=== PATIENT | female | born 1990 | race Asian ===

== ENCOUNTER 2019-05-19 18:23 | Observation (INO) ==
[2019-05-19] MEDS ORDERED: SODIUM CHLORIDE 0.9% 1000ML 1,000 ML IV ONE (18:51)
[2019-05-19] MEDS ORDERED: MoRPHine SULFATE 2 MG/ML CARP IV STA ×2 (19:04→19:44)
[2019-05-19 19:45] LABS: Basophils # (auto) 0.02 K/uL (0-0.2); Basophils % (auto) 0.2 %; Eosinophils # (auto) 0.02 K/uL (0-0.5); Eosinophils % (auto) 0.2 %; Hemoglobin 12.7 g/dL (12.0-16.0); Immature Granulocytes # (auto) 0.03 K/uL (0.00-0.02); Immature Granulocytes % (auto) 0.3 %; Lymphocytes % (auto) 9.4 %; Mean Corpuscular Hemoglobin 27.9 pg (25-34); Mean Corpuscular Hgb Conc 33.4 g/dL (32-36); Mean Corpuscular Volume 83.5 fL (80-100); Mean Platelet Volume 12.3 fL (7.4-10.4); Monocytes # (auto) 0.37 K/uL (0.11-0.59); Monocytes % (auto) 3.1 %; Neutrophils # (auto) 10.21 K/uL (1.4-6.5); Neutrophils % (auto) 86.8 %; Platelet Count 203 K/uL (130-400); RDW Coefficient of Variation 13.1 % (11.5-14.5); RDW Standard Deviation 39.5 fL (36.4-46.3); Red Blood Count 4.55 M/uL (4.2-5.4); White Blood Count 11.75 K/uL (4.8-10.8)
[2019-05-19 19:50] LABS: Alanine Aminotransferase 10 U/L (12-78); Albumin Level 3.7 gm/dl (3.4-5.0); Aspartate Aminotransferase 7 U/L (15-37); Blood Urea Nitrogen 12 mg/dl (7-18); Calcium 8.7 mg/dl (8.5-10.1); Carbon Dioxide 23 mmol/L (21-32); Chloride 110 mmol/L (98-107); Est GFR (African American) 126.9; Est GFR (Non-African American) 109.5; Glucose 109 mg/dl (70-99); Potassium 3.5 mmol/L (3.5-5.1); Sodium 140 mmol/L (136-145)
[2019-05-19 19:53] LABS: Albumin Globulin Ratio 1.1 (0.9-2); Alkaline Phosphatase 46 U/L (45-117); Bilirubin,Total 0.8 mg/dl (0.2-1); Globulin 3.5 gm/dl (2.5-4.0); Total Protein 7.2 gm/dl (6.4-8.2)
--- NOTE | 2019-05-19 20:33 | Surgery Progress Note ---
Date of Service May 19, 2019 Assessment & Plan (1) External hemorrhoid, thrombosed: Patient was placed in a prone position. Quick clot applied to the hemorrhoid and firm pressure held for several minutes. The patient was then placed into a supine position with a sandbag providing pressure to the area. I reevaluated the patient about an hour and a half following this treatment and the bleeding had completely stopped. The patient was comfortable. H&H was stable. Instructions were given to the patient for home care. I feel she is stable for discharge and is to follow-up with me within 1 week. Patient was offered to stay overnight for a night but she opted to go home. I think this is reasonable. Subjective Called back to the emergency room. Patient is status post I&D of a thrombosed hemorrhoid earlier today. She represented to the OR shortly after discharge complaining of severe bleeding from the incision site. Physical Exam Physical Exam: Patient with bleeding from the incised hemorrhoid. No new findings. Gauze soaked with blood with moderate active bleeding. Results & Data Vital Signs (Past 12 Hours) Vital Signs Temp Pulse Pulse Resp BP BP Pulse Ox 05/19/19 19:32 65 20 108/75 97 05/19/19 18:32 36.3 C L 86 16 115/77 98 PG Care Time/CCT Total # of Minutes Spent Total Time Spent with Patient: Total time spent is greater than 50% in coordination of care (as documented) at patient's floor/unit and/or counseling patient:
[2019-05-19] MEDS ORDERED: MoRPHine SULFATE 4 MG/ML 1 ML CARP\\VIAL IV STA (21:14)
--- NOTE | 2019-05-19 21:40 | History & Physical Report ---
Date of Service May 19, 2019 Assessment & Plan (1) External hemorrhoid, thrombosed: will admit to observation for pain control. hopeful d/c tomorrow. discussed hemorrhoidectomy cannot be performed until inflammation resolves. History of Present Illness Primary Care Provider: NO PCP pt seen in ER today for thrombosed hemorrhoid. we incised/drained it earlier today without incident. pt returned to ER with bleeding. bleeding controlled with pressure/hemostatic agent but pt wants to stay for pain control. Allergies Allergy/AdvReac Type Severity Reaction Status Date / Time SEAFOOD Allergy Mild RASH Uncoded 05/19/19 20:44 Home Medications Home Medications Medication Instructions Recorded Confirmed Type aspirin 1,000 mg PO Q6H PRN 05/19/19 05/19/19 History dibucaine [Nupercainal] 1 applic [place] QID PRN 05/19/19 05/19/19 History hydrocodone-acetaminophen [[place]] 1 tab PO Q6H PRN #12 tab 05/19/19 05/19/19 Rx Past Med/Surg History Medical History (Updated 05/19/19 @ 20:31 by Disha Everett) Amniotic fluid leaking (Acute) External hemorrhoid, thrombosed (Acute) No significant past medical history Surgical History (Updated 05/19/19 @ 12:11 by Camille Sharma) No significant past surgical history Social History (Updated 05/19/19 @ 12:11 by Camille Sharma) Preferred Language: Martiniquais Communication Ability: Effective Visual Impairment: No Limitations Hearing Ability: Normal Current Living Situation: Family Feels Safe at Home: Yes Smoking Status: Never smoker Hx Alcohol Use: No Hx Substance Use: No Review of Systems All systems reviewed & are unremarkable except as noted in HPI & below Physical Exam Constitutional: WD/WN, vitals as above no acute distress and not ill appearing Eyes: PERRL, conjunctivae normal, anicteric sclerae EOM intact bilaterally ENMT: external ear and nose normal, oropharynx normal Ears: no hearing impairment Neck: trachea midline, no thyromegaly Respiratory: normal respiratory effort; no respiratory distress and does not use accessory muscles Cardiovascular: Rate/Rhythm: regular rate and regular rhythm Gastrointestinal (Abdomen): normal bowel sounds, soft, nontender, no hepatosplenomegaly bleeding stopped.. hemorrhoid approx 1/4 size of earlier today. much less tender. Skin: no rashes, warm and dry Psychiatric: Orientation: alert, oriented x 3 and cooperative Results & Data Vital Signs (Past 12 Hours) Vital Signs Temp Pulse Pulse Resp BP BP Pulse Ox 05/19/19 21:14 120 H 22 135/96 98 05/19/19 19:32 65 20 108/75 97 05/19/19 18:32 36.3 C L 86 16 115/77 98
[2019-05-19] MEDS ORDERED: OXYCODONE HCL IR 5 MG TAB (IMMEDIATE RELEASE) PO PRN ×2 (22:30)
[2019-05-19] MEDS ORDERED: KETOROLAC 30 MG/ML VIAL IV PRN (22:30)
[2019-05-19] MEDS ORDERED: SODIUM CHLORIDE 0.9% 1000ML 1,000 ML IV SCH (22:30)
[2019-05-19] MEDS ORDERED: HYDROmorphone INJ 1 MG/ML SYRINGE IV PRN (22:30)
[2019-05-19] MEDS ORDERED: ACETAMINOPHEN 325 MG TAB PO PRN (22:30)
[2019-05-19] MEDS ORDERED: ONDANSETRON INJ 2 MG/ML 2 ML VIAL IV PRN (22:30)
[2019-05-19] MEDS ORDERED: HYDROmorphone INJ 0.5 MG/0.5 ML SYR IV PRN (22:35)
[2019-05-19] MEDS: IBUPROFEN 600 MG TAB PO SCH (23:44)
[2019-05-19 23:51] LABS: Hematocrit (blood only) 31.3 % (37-47); Hemoglobin 10.5 g/dL (12.0-16.0); Mean Corpuscular Hemoglobin 27.9 pg (25-34); Mean Corpuscular Hgb Conc 33.5 g/dL (32-36); Mean Platelet Volume 12.4 fL (7.4-10.4); Platelet Count 172 K/uL (130-400); RDW Coefficient of Variation 13.1 % (11.5-14.5); Red Blood Count 3.77 M/uL (4.2-5.4); White Blood Count 9.07 K/uL (4.8-10.8)
[2019-05-20] MEDS: IBUPROFEN 600 MG TAB PO SCH ×3 (05:56→19:25)
[2019-05-20 08:08] LABS: Hemoglobin 10.7 g/dL (12.0-16.0); Mean Corpuscular Hemoglobin 27.8 pg (25-34); Mean Corpuscular Hgb Conc 33.4 g/dL (32-36); Mean Corpuscular Volume 83.1 fL (80-100); Mean Platelet Volume 11.9 fL (7.4-10.4); Platelet Count 167 K/uL (130-400); RDW Coefficient of Variation 13.1 % (11.5-14.5); RDW Standard Deviation 39.9 fL (36.4-46.3); Red Blood Count 3.85 M/uL (4.2-5.4); White Blood Count 7.66 K/uL (4.8-10.8)
--- NOTE | 2019-05-20 08:09 | Surgery Progress Note ---
Date of Service May 20, 2019 Assessment & Plan (1) External hemorrhoid, thrombosed: Day#1 s/p I&D of external hemorrhoid Patient re-presented with bleeding and pain after discharge from the ED yesterday. Bleeding was then managed in the ED and pt was admitted for pain control. She initially told me she felt better, but then expressed ongoing concerns for pain and frustration that she had to return yesterday CBC this morning is stable at 10.7 from 10.5; only scant drainage on pad from overnight She has not taking narcotic since around midnight and has been utilizing ibuprofen for pain control I educated patient that after the I&D we want patient to try conservative management of her hemorrhoid prior to follow up in the surgery clinic, such as stool softeners, fiber, and 3-4x daily sitz baths Anticipate discharge to home later today. Will leave instructions for patient to follow up in surgery clinic within 1-2 wks if she stays in the area, but she can also follow up with a surgeon in [place] if she prefers since she is going back home As above. Continues to have significant pain. No further bleeding. On exam her hemorrhoid is dramatically smaller from yesterday but is still thrombosed and exquisitely tender. Nares down to a relatively narrow base and I believe I could potentially perform a hemorrhoidectomy which should give her more definitive relief. She is not capable of going home at this point. We will make her n.p.o. and perform a rectal exam under anesthesia with anticipation of hemorrhoidectomy. Discussed the options and risks. Patient agreeable. Subjective Patient initially told me she had an uneventful night. She said she had no episodes of bleeding since coming to the floor. As conversation continued she endorsed ongoing frustration with why she still has her hemorrhoid and that she is still in pain. Physical Exam Physical Exam: awake/alert Gastrointestinal (Abdomen): + external hemorrhoid with scant bloody drainage on pad Results & Data Vital Signs (Past 12 Hours) Vital Signs Temp Pulse Pulse Resp BP Pulse Ox 05/20/19 07:48 36.9 C 77 16 95/59 L 98 05/19/19 23:20 36.9 C 65 16 109/71 95 05/19/19 22:30 37 C 100 H 18 122/75 97 05/19/19 21:14 120 H 22 135/96 98 PG Care Time/CCT Total # of Minutes Spent Total Time Spent with Patient: Total time spent is greater than 50% in coordination of care (as documented) at patient's floor/unit and/or counseling patient:
[2019-05-20] MEDS ORDERED: SODIUM CHLORIDE 0.9% 1000ML 1,000 ML IV SCH (11:00)
[2019-05-20] MEDS ORDERED: fentaNYL citrate 100 MCG/2 ML VIAL ONE (14:55)
[2019-05-20] MEDS ORDERED: DEXAMETHASONE SOD INJ 4 MG/ML VIAL ONE (14:55)
[2019-05-20] MEDS ORDERED: ONDANSETRON INJ 2 MG/ML 2 ML VIAL ONE (14:55)
[2019-05-20] MEDS ORDERED: PROPOFOL IV EMULSION 10 MG/ML 20 ML VIAL IV ONE (14:55)
[2019-05-20] MEDS ORDERED: LIDOCAINE HCL 2% 2 ML VIAL/AMP(20MG/ML) INFIL ONE (14:55)
[2019-05-20] MEDS ORDERED: MIDAZOLAM HCL 1 MG/ML 2ML VIAL ONE (14:55)
--- NOTE | 2019-05-20 15:20 | History & Physical Bridge Note ---
Date of Service May 20, 2019 History & Physical Bridge Note I have examined the patient, reviewed the History & Physical and in the interval since the performance of the History & Physical I have noted the following changes of clinical significance: no changes noted
--- NOTE | 2019-05-20 15:26 | Anesthesiology Consultation ---
Date of Service May 20, 2019 Assessment & Plan Chart Review Chart Review: Acceptable Risk for Surgery Consults Requested none History Surgery Operation Date: 05/20/19 12:35 Proposed Procedures p Hemorroidectomy - Fernie Sidhu DO Height/Weight Height: 5 ft 3 in Weight: 47.3 kg Allergies Allergy/AdvReac Type Severity Reaction Status Date / Time SEAFOOD Allergy Mild RASH Uncoded 05/19/19 20:44 Medications Home Medications Medication Instructions Recorded Confirmed Last Taken aspirin 1,000 mg PO Q6H PRN 05/19/19 05/19/19 Unknown dibucaine [Nupercainal] 1 applic [place] QID PRN 05/19/19 05/19/19 Unknown hydrocodone-acetaminophen [[place]] 1 tab PO Q6H PRN #12 tab 05/19/19 05/19/19 Unknown Active Medications Generic Name Dose Route Start Last Admin Trade Name Freq PRN Reason Stop Dose Admin Hydromorphone HCl 0.5 mg 05/19/19 22:35 05/19/19 22:39 Dilaudid IV 06/02/19 22:34 0.5 mg Q3H PRN Administration MODERATE PAIN Sodium Chloride 1,000 mls @ 100 mls/hr 05/20/19 11:00 05/20/19 10:51 Nss 1000ml IV 06/19/19 10:59 100 mls/hr .Q10H CLARY Administration Ibuprofen 600 mg 05/20/19 00:00 05/20/19 12:55 Motrin PO 06/19/19 00:00 600 mg Q6H CLARY Administration Oxycodone HCl 10 mg 05/19/19 22:30 05/20/19 09:45 Roxicodone Immediate Rel PO 06/02/19 22:29 10 mg Q4H PRN Administration SEVERE Pain (Scale 7,8,9,10) NPO Date Last Intake of Fluids: 05/19/19 Time Last Intake of Fluids: 23:59 Date Last Intake of Solids: 05/19/19 Time Last Intake of Solids: 23:59 Past Medical History Medical History Amniotic fluid leaking (Acute) External hemorrhoid, thrombosed (Acute) No significant past medical history Past Surgical History Surgical History No significant past surgical history Social History Smoking Status: Never smoker Do You Dip or Chew Tobacco: No Hx Alcohol Use: No Hx Substance Use: No substance use type: does not use Physical Exam Vital Signs Last Vital Signs Temp 37 C 05/20/19 15:15 Pulse 74 05/20/19 15:15 Resp 16 05/20/19 15:15 BP 106/68 05/20/19 15:15 Pulse Ox 100 05/20/19 15:15 Testing Laboratory Results 05/20/19 07:49 05/19/19 19:09 Blood Type O Positive 05/19/19 19:09 Antibody Screen NEGATIVE 05/19/19 19:09
[2019-05-20] MEDS ORDERED: GELATIN SPONGE SZ 100 ONE (15:28)
[2019-05-20] MEDS ORDERED: BUPIVACAINE/EPINEPHRINE 0.5% MPF 1:200,000 10 ML VIAL ONE (15:28)
[2019-05-20] MEDS ORDERED: ePHEDrine sulfate 50 MG/ML AMP IV PRN (15:31)
[2019-05-20] MEDS ORDERED: METOCLOPRAMIDE HCL INJ 5 MG/ML 2 ML VIAL IV PRN (15:31)
[2019-05-20] MEDS ORDERED: ATROPINE SULFATE 0.1 MG/ML 10ML SYR IV PRN (15:31)
[2019-05-20] MEDS ORDERED: PROMETHAZINE HCL 12.5 MG in SODIUM CHLORIDE 0.9% 50 ML IV PRN (15:31)
[2019-05-20] MEDS ORDERED: HYDROmorphone INJ 2 MG/ML SYR/VIAL IV PRN (15:31)
[2019-05-20] MEDS ORDERED: DEXAMETHASONE SOD INJ 4 MG/ML VIAL IV PRN (15:31)
[2019-05-20] MEDS ORDERED: ONDANSETRON INJ 2 MG/ML 2 ML VIAL IV PRN (15:31)
[2019-05-20] MEDS ORDERED: fentaNYL citrate 100 MCG/2 ML VIAL IV PRN (15:31)
[2019-05-20] MEDS ORDERED: BUPIVACAINE LIPOSOME 1.3% 266 MG/20 ML VIAL ONE (16:04)
[2019-05-20] MEDS ORDERED: LIDOCAINE 2% JELLY 5 ML TUBE ONE (16:22)
[2019-05-20] MEDS ORDERED: CEFAZOLIN 1,000 MG/7.5 ML IV PUSH IV ONE (16:31)
--- NOTE | 2019-05-20 16:46 | Operative Report ---
[facility] Post Operative Report Pre & Post Diagnosis Operation Date: 05/20/19 12:35 Pre-Op Diagnosis: THROMBOSED HEMORRHOID Post-Op Diagnosis: THROMBOSED HEMORRHOID I identified the patient and participated in the time-out.: Yes Procedure Operation Date: 05/20/19 12:35 Actual Procedures p Hemorroidectomy - Fernie Sidhu DO Surgeon Fernie Sidhu, [employer] kerry Hood Estimated Blood Loss 10 Findings Consistent with Post-Op Diagnosis Specimens hemorrhoid tissue Description of Procedure After informed consent was obtained the patient was taken to the operating room and placed in supine position. After successful placement of the laryngeal mask airway the patient was placed in a high lithotomy position in yellowfin stirrups. The entire rectum and perineum were sterilely prepped and draped in usual fashion. I began by injecting Marcaine with epinephrine around the area of the inflamed hemorrhoid. Once this was done I performed a rectal exam under anesthesia with a rigid anoscope. Only one area of hemorrhoid tissue was inflamed at the 5 oclock location. This was much improved from yesterday and the thrombosis was completely extracted previously. I incised the anoderm using a fresh 15 blade scalpel. I then used a LigaSure device to come down underneath the hemorrhoidal tissue down in divide and cauterize its pedicle. The tissue was sent off to pathology. No other hemorrhoidal tissue was seen. Once the procedure was completed I injected Exparel 20 cc around the entire operative field. There was adequate hemostasis. We irrigated the rectal vault. We placed a piece of Gelfoam with lidocaine jelly into the rectal lumen. The patient was then placed in a supine position extubated and transferred recovery in stable condition. My physician senior care assistant was present for the entire case. He will prep the patient. He helped with retraction during my dissection as well as dressing placement. I attest to the content of the Intraoperative Record and any orders documented therein. Any exceptions are noted below.
[2019-05-20] MEDS ORDERED: CEFAZOLIN 250 MG/ML 1 GM VIAL ONE (16:47)
--- NOTE | 2019-05-20 17:11 | Anesthesiology Progress Note ---
Date of Service May 20, 2019 Anesthesia Post Procedure Vital Signs Vital Signs: Temp Pulse Pulse Pulse Resp BP BP 05/20/19 17:00 81 16 106/62 05/20/19 16:50 79 16 105/67 05/20/19 16:40 36.9 C 101 H 16 110/74 05/20/19 15:15 37 C 74 16 106/68 05/20/19 07:48 36.9 C 77 16 95/59 L 05/19/19 23:20 36.9 C 65 16 109/71 05/19/19 22:30 37 C 100 H 18 122/75 05/19/19 21:14 120 H 22 135/96 05/19/19 19:32 65 20 108/75 05/19/19 18:32 36.3 C L 86 16 115/77 Pulse Ox 05/20/19 17:00 100 05/20/19 16:50 100 05/20/19 16:40 100 05/20/19 15:15 100 05/20/19 07:48 98 05/19/19 23:20 95 05/19/19 22:30 97 05/19/19 21:14 98 05/19/19 19:32 97 05/19/19 18:32 98 Pain Intensity Rectal: Pain Intensity: 5 Transfer of Care Handoff Completed per policy Notes Mental Status: alert / awake / arousable and participated in evaluation Patient Amnestic to Procedure: Yes Nausea / Vomiting: adequately controlled Pain: adequately controlled Airway Patency, RR, SpO2: stable & adequate BP & HR: stable & adequate Hydration State: stable & adequate Anesthetic Complications: no major complications apparent
--- NOTE | 2019-05-21 10:37 | Emergency Department Note ---
Entered by Disha Everett acting as a scribe for History of Present Illness General Chief complaint: Bleeding Stated complaint: HARD TIME BREATHING Time Seen by Provider: 05/19/19 18:44 History of Present Illness Provider complaint: rectal bleeding Onset (ago): minute(s) 10 Pain Consistency: + other (episode) Maximum Pain Intensity: 3 Quality: + other (rectal bleeding) Relieved By: + none Associated symptoms: + weakness and + other (hemorrhoid drained today by Dr. Sidhu and was just discharged, afriad she will , dizzy, bled through several pads) The patient is a 29 year old female who presents to the ED with complaints of an episode of rectal bleeding that started 10 minutes ago. The patient states the she just had a hemorrhoid drained today by Dr. Sidhu. The patient states that she was discharged 10 minutes ago but the bleeding is so profuse that she is afraid she will if she goes home. The patient states she is very dizzy and weak. The patient states that she has bled through several pads and nothing is stopping the bleeding. Home Medications Home Medications Medication Instructions Recorded Confirmed Type Nupercainal 1 applic NC QID PRN 05/19/19 05/19/19 History aspirin 1,000 mg PO Q6H PRN 05/19/19 05/19/19 History hydrocodone-acetaminophen [[place]] 1 tab PO Q6H PRN #12 tab 05/19/19 05/19/19 Rx Allergies Allergy/AdvReac Type Severity Reaction Status Date / Time SEAFOOD Allergy Mild RASH Uncoded 05/19/19 20:44 Past Med/Surg History Medical History Amniotic fluid leaking (Acute) External hemorrhoid, thrombosed (Acute) No significant past medical history Surgical History No significant past surgical history Social History (Updated 05/19/19 @ 12:11 by Camille Sharma) Preferred Language: B[place]ian Communication Ability: Effective Visual Impairment: No Limitations Hearing Ability: Normal 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 and A total of 10 systems reviewed and were otherwise negative Physical Exam Vital Signs Vital Signs - 24 hr 05/19/19 18:32 05/19/19 19:12 05/19/19 19:31 Temperature 36.3 C L Temperature Source Oral Pulse Rate 86 Pulse Rate [Apical] Pulse Rhythm Regular Pulse Strength Normal Respiratory Rate 16 Respiratory Effort / Characteristics Non-Labored Respiratory Depth Normal Respiratory Pattern Regular Blood Pressure 115/77 Blood Pressure [Right Arm] Blood Pressure Mean 89 Blood Pressure Mean [Right Arm] Blood Pressure Position Sitting Pulse Oximetry 98 Oxygen Delivery Method Room Air Room Air Room Air Oxygen Flow Rate 100 Sepsis Recent Fever Within 48 Hours No Sepsis Action Taken by Nursing No Action Required 05/19/19 19:32 05/19/19 21:14 Temperature Temperature Source Pulse Rate Pulse Rate [Apical] 65 120 H Pulse Rhythm Pulse Strength Respiratory Rate 20 22 Respiratory Effort / Characteristics Non-Labored Respiratory Depth Normal Respiratory Pattern Blood Pressure Blood Pressure [Right Arm] 108/75 135/96 Blood Pressure Mean Blood Pressure Mean [Right Arm] 86 109 Blood Pressure Position Pulse Oximetry 97 98 Oxygen Delivery Method Room Air Room Air Oxygen Flow Rate Sepsis Recent Fever Within 48 Hours Sepsis Action Taken by Nursing General: Uncomfortable appearing young female HEENT: Normal cephalic atraumatic. Pupils are equal round and reactive to light. Extraocular movements are intact. Oropharynx is pink with moist mucous me mbranes. No swelling of the mouth lips or tongue. Neck: Supple with a midline trachea. No meningeal signs or stiffness, no JVD or bruits. No Stridor. Chest: Clear to auscultation bilaterally. No wheezes or rhonchi. No increased work of breathing. Heart: regular rate and rhythm. Abdomen: Soft nontender, nondistended without rebound guarding or rigidity. Extremities: No cyanosis clubbing or edema. No calf tenderness or asymmetry Rectal: Large amount of bright red blood with clots seen in dressing and underwear. Bleeding is coming from hemorrhoid. Spine/Back. Non tender to palpation. No CVA tenderness Skin: Good turgor without rashes. Neurologic exam: Cranial nerves two through 12 are intact. Motor and sensation are intact and symmetrical throughout. Course Course 1848: Past medical records reviewed. The patient was evaluated in room A10. A complete history and physical exam was performed. 1851: I discussed the patient's case with Dr. Mariano Salamanca. He states that he will come down and see the patient. 1857: Dr. Sidhu came down to see the patient. They put a quick clot on her and are holding pressure. I will reevaluate the patient shortly. 1955: A pressure dressing is applied and there is no significant bleeding present. The patient is requesting more pain medicine. 2020: I reevaluated the patient and she is no longer bleeding. The patient states that she is still in pain. 2118: I discussed the patient's case with Dr. Mariano Salamanca. He will evaluate the patient for further pain management. Consultations Consultation #1: I discussed the patient's case with Dr. Mariano Salamanca. He states that he will come down and see the patient. Time: 18:52 Consultation #2: I discussed the patient's case with Dr. Mariano Salamanca. He will evaluate the patient for further pain management. Time: 21:19 Administered Medications Discontinued Medications Bupivacaine HCl/Epinephrine Bitart (Sensorcaine/Epinephrine 0.5% Mpf 1:200,000) Confirm Administered Dose 20 ml .ROUTE .STK-MED ONE Stop: 05/20/19 15:29 Last Admin: 05/20/19 16:24 Dose: 20 ml Documented by: [id number] Bupivacaine Liposome (Exparel) Confirm Administered Dose 266 mg .ROUTE .STK-MED ONE Stop: 05/20/19 16:05 Last Admin: 05/20/19 16:25 Dose: 266 mg Documented by: [id number] Cefazolin Sodium (Ancef 1000mg) 1,000 mg IV NOW ONE; Protocol Stop: 05/20/19 16:32 Last Admin: 05/20/19 19:23 Dose: Not Given Documented by: [id number] Gelatin (Surgifoam Sponge 100 (Large)) Confirm Administered Dose 1 ea .ROUTE .STK-MED ONE Stop: 05/20/19 15:29 Last Admin: 05/20/19 16:25 Dose: 1 ea Documented by: [id number] Hydromorphone HCl (Dilaudid) 0.5 mg IV Q3H PRN PRN Reason: MODERATE PAIN Stop: 06/02/19 22:34 Last Admin: 05/19/19 22:39 Dose: 0.5 mg Documented by: [id number] Sodium Chloride (Nss 1000ml) 1,000 mls @ 999 mls/hr IV .Q1H1M ONE Stop: 05/19/19 19:51 Last Infusion: 05/19/19 20:04 Dose: 0 mls/hr Documented by: [id number] Admin: 05/19/19 19:03 Dose: 999 mls/hr Documented by: [id number] Sodium Chloride (Nss 1000ml) 1,000 mls @ 100 mls/hr IV .Q10H CLARY Stop: 06/18/19 22:29 Last Infusion: 05/20/19 08:28 Dose: 0 mls/hr Documented by: [id number] Admin: 05/19/19 22:39 Dose: 100 mls/hr Documented by: [id number] Sodium Chloride (Nss 1000ml) 1,000 mls @ 100 mls/hr IV .Q10H CLARY Stop: 06/19/19 10:59 Last Admin: 05/20/19 10:51 Dose: 100 mls/hr Documented by: [id number] Ibuprofen (Motrin) 600 mg PO Q6H CLARY Stop: 06/19/19 00:00 Last Admin: 05/20/19 19:25 Dose: 600 mg Documented by: [id number] Admin: 05/20/19 12:55 Dose: 600 mg Documented by: [id number] Admin: 05/20/19 05:56 Dose: 600 mg Documented by: [id number] Admin: 05/19/19 23:44 Dose: 600 mg Documented by: [id number] Lidocaine HCl (Xylocaine 2% Jelly) Confirm Administered Dose 5 ml .ROUTE .STK- MED ONE Stop: 05/20/19 16:23 Last Admin: 05/20/19 16:25 Dose: 5 ml Documented by: [id number] Morphine Sulfate (Morphine Sulfate) 2 mg IV NOW STA Stop: 05/19/19 19:05 Last Admin: 05/19/19 19:07 Dose: 2 mg Documented by: [id number] Morphine Sulfate (Morphine Sulfate) 2 mg IV NOW STA Stop: 05/19/19 19:45 Last Admin: 05/19/19 19:47 Dose: 2 mg Documented by: [id number] Morphine Sulfate (Morphine Sulfate) 4 mg IV NOW STA Stop: 05/19/19 21:15 Last Admin: 05/19/19 21:19 Dose: 4 mg Documented by: [id number] Oxycodone HCl (Roxicodone Immediate Rel) 10 mg PO Q4H PRN PRN Reason: SEVERE Pain (Scale 7,8,9,10) Stop: 06/02/19 22:29 Last Admin: 05/20/19 09:45 Dose: 10 mg Documented by: [id number] Medical Decision Making Differential Diagnosis Differentials include anemia, GI bleed, infection, post-surgical complication. Medical Records Attestation: I reviewed the patient's medical records. Home Medications Current Medication List: was personally reviewed by me Laboratory Data Attestation: I reviewed the patient's lab results. Result diagrams: 05/20/19 07:49 05/19/19 19:09 Lab Results 05/19/19 05/19/19 05/19/19 Range/Units 19:09 19:09 19:09 WBC 11.75 H (4.8-10.8) K/uL RBC 4.55 (4.2-5.4) M/uL Hgb 12.7 (12.0-16.0) g/dL Hct 38.0 (37-47) % MCV 83.5 (80-100) fL MCH 27.9 (25-34) pg MCHC 33.4 (32-36) g/dL RDW Std Deviation 39.5 (36.4-46.3) fL RDW Coeff of Yana 13.1 (11.5-14.5) % Plt Count 203 (130-400) K/uL MPV 12.3 H (7.4-10.4) fL Immature Gran % (Auto) 0.3 % Neut % (Auto) 86.8 % Lymph % (Auto) 9.4 % [place] % (Auto) 3.1 % Eos % (Auto) 0.2 % Baso % (Auto) 0.2 % Immature Gran # (Auto) 0.03 H (0.00-0.02) K/uL Neut # (Auto) 10.21 H (1.4-6.5) K/uL Lymph # (Auto) 1.10 L (1.2-3.4) K/uL [place]oshone # (Auto) 0.37 (0.11-0.59) K/uL Eos # (Auto) 0.02 (0-0.5) K/uL Baso # (Auto) 0.02 (0-0.2) K/uL Sodium 140 (136-145) mmol/L Potassium 3.5 (3.5-5.1) mmol/L Chloride 110 H (98-107) mmol/L Carbon Dioxide 23 (21-32) mmol/L Anion Gap 7.0 (3-11) BUN 12 (7-18) mg/dl Creatinine 0.74 (0.6-1.2) mg/dl Est Cr Clr Drug Dosing Not Reportable Est GFR ( Amer) 126.9 Est GFR (Non-Af Amer) 109.5 BUN/Creatinine Ratio 16.0 (10-20) Glucose 109 H (70-99) mg/dl Calcium 8.7 (8.5-10.1) mg/dl Total Bilirubin 0.8 (0.2-1) mg/dl AST 7 L (15-37) U/L ALT 10 L (12-78) U/L Alkaline Phosphatase 46 (45-117) U/L Total Protein 7.2 (6.4-8.2) gm/dl Albumin 3.7 (3.4-5.0) gm/dl Globulin 3.5 (2.5-4.0) gm/dl Albumin/Globulin Ratio 1.1 (0.9-2) Blood Type O Positive Antibody Screen NEGATIVE Blood Pressure Blood Pressure Findings: Normal blood pressure Blood Pressure Disposition: did not require urgent referral MDM Narrative This patient comes in as described above. She returns to the ER after having significant rectal bleeding and pain. She was seen here earlier today and had her hemorrhoid excised by Dr. Sidhu. She went home and had a large amount of bleeding from the hemorrhoid. The nurse came and asked me to see her and when I went to see her she had large clots soaking through her pad and underwear. She was hemodynamically stable. she also appeared uncomfortable secondary to pain. IV access was established and blood work was obtained. we did give her multiple dose of IV morphine over several hours in the ER for pain management. There is a area in the central hemorrhoid that is bleeding slowly but persistently. I did call Dr. Sidhu who promptly came back to the ER. He has applied a hemostatic agent and we applied pressure for over an hour. The bleeding stopped fortunately and the patient seemed to be doing a lot better at that point he felt she could go home. Prior to discharge however, she started complaining that she was having significant pain and she did receive additional IV morphine and she does not feel she can go home secondary to pain management. I do think it is reasonable to observe her given that she has had bleeding with this as well as pain issues. Dr. Sidhu will be keeping her in the hospital for observation. Impression & Plan Rectal bleed, Status post hemorrhoidectomy, Pain in rectum Discharge Plan Visit Data *Final* Discharge Date/Time: 05/19/19 22:34 Chief Complaint: Bleeding Stated Complaint: HARD TIME BREATHING Other Complaint: Shortness of Breath/Dyspnea ED Provider: Rayray Anand Discharge Problem: Rectal bleed, Status post hemorrhoidectomy, Pain in rectum Patient Disposition: Admitted As Inpatient Discharge Instructions Interventions: ED Discharge Assessment Last Done: 05/19/19 22:34 The scribe's documentation has been prepared under my direction and personally reviewed by me in its entirety. I confirm that the note above accurately reflects all work, treatment, procedures, and medical decision making performed by me.
--- NOTE | 2019-05-24 09:40 | Discharge Summary ---
DATE OF ADMISSION: 05/19/2019 DATE OF DISCHARGE: 05/20/2019 PRIMARY DISCHARGE DIAGNOSIS: Thrombosed hemorrhoid. PROCEDURE PERFORMED: Hemorrhoidectomy. HOSPITAL COURSE: The patient is a 29-year-old female who presented to the Emergency Department with a large painful thrombosed hemorrhoid. This was drained at the bedside in the ED. She had been discharged home and returned a few hours later complaining of persistent pain. She was admitted to surgery service overnight and taken to the operating room the next day for hemorrhoidectomy. The procedure was well tolerated. She was returned to the surgical floor, was stable for discharge home later that evening. DISCHARGE INSTRUCTIONS: Discharge home. Follow up with Dr. Sidhu in 2 weeks. DISCHARGE MEDICATIONS: [place] 1-2 tablets every 6 hours as needed for pain. Exparel had also been injected at the surgical site.
== END 2019-05-20 22:26 | disposition home or self-care (01) ==
LOC: 3W 18:23 → ED 18:23 → 3W 22:34